=== PATIENT | female | born 1985 | race Caucasian/White ===

== ENCOUNTER 2018-11-24 15:56 | Emergency (ER) | payer OTHER ==
[2018-11-24] MEDS: ONDANSETRON 4 MG INJ IM (17:01)
[2018-11-24] MEDS: HYDROmorphONE 2 MG/ML SYG IM (17:01)
== END 2018-11-24 18:13 | disposition home or self-care (01) ==
LOC: E/R 15:56
DX: R10.9 Unspecified abdominal pain (principal); R40.2142 Coma scale, eyes open, spontaneous, at arrival to emergency department; R40.2252 Coma scale, best verbal response, oriented, at arrival to emergency department; R40.2362 Coma scale, best motor response, obeys commands, at arrival to emergency department
CPT/HCPCS: 96372; 99284-25; J1170